=== PATIENT | female | born 1995 | race Caucasian/White ===

== ENCOUNTER 2023-12-06 15:53 | Emergency (ER) | payer SELFPAY ==
[2023-12-06 16:34] LABS: BASOPHILS ABSOLUTE AUTO 0.1 K/mm3 (0.0-0.2); BASOPHILS PERCENT AUTO 0.8 % (0.0-1.0); EOSINOPHILS ABSOLUTE AUTO 0.1 K/mm3 (0.0-0.4); EOSINOPHILS PERCENT AUTO 1.2 % (0.0-6.0); HEMATOCRIT 45.5 % (37.0-47.0); HEMOGLOBIN 15.3 gm/dl (12.0-16.0); IMMATURE GRAN ABSOLUTE AUTO 0.15 K/mm3 (0.00-0.05); IMMATURE GRAN PERCENT AUTO 1.6 % (0.0-0.4); LYMPHOCYTES ABSOLUTE AUTO 2.2 K/mm3 (1.0-4.8); LYMPHOCYTES PERCENT AUTO 24.3 % (24.0-44.0); MEAN CORPUSCULAR HEMOGLOBIN 28.8 pg (28.0-32.0); MEAN CORPUSCULAR HGB CONC 33.6 g/dl (32.0-36.0); MEAN CORPUSCULAR VOLUME 85.7 fl (83.0-99.0); MEAN PLATELET VOLUME 11.6 fl (9.4-12.3); MONOCYTES ABSOLUTE AUTO 0.9 K/mm3 (0.0-0.8); MONOCYTES PERCENT AUTO 10.2 % (0.0-8.0); NEUTROPHILS ABSOLUTE AUTO 5.6 K/mm3 (1.8-7.7); NEUTROPHILS PERCENT AUTO 61.9 % (41.0-71.0); PLATELET COUNT,PLT 294 K/mm3 (150-400); RED BLOOD CELL COUNT 5.31 M/mm3 (4.10-5.30); WHITE BLOOD CELL COUNT,WBC 9.11 K/mm3 (3.9-11.3)
[2023-12-06] MEDS: Ketorolac 60 MG/2 ML SDV IM ONE (16:41)
[2023-12-06 16:47] LABS: APPEARANCE,URINE CLEAR (Clear); BILIRUBIN,URINE NEGATIVE (Negative); COLOR,URINE YELLOW (Yellow); GLUCOSE,URINE NEGATIVE (Negative); KETONES,URINE NEGATIVE (Negative); LEUKOCYTE ESTERASE,URINE TRACE (Negative); NITRITE,URINE NEGATIVE (Negative); OCCULT BLOOD,URINE NEGATIVE (Negative); PROTEIN,URINE 1+ (Negative); UROBILINOGEN,URINE 0.2 (0.2-1.0)
[2023-12-06 16:55] LABS: A/G RATIO 0.9 (1-2); ALBUMIN 3.4 g/dl (3.4-5.0); ANION GAP 14.9 (5-15); BILIRUBIN TOTAL 0.3 mg/dL (0.2-1.0); BUN/CREATININE RATIO 11.4 (14-18); CALCIUM 10.2 mg/dL (8.5-10.1); CREATININE 0.7 mg/dL (0.55-1.02); EST CRCL DRUG DOSING (CG) 91.9 mL/min; POTASSIUM,K 3.9 mEq/L (3.5-5.1)
[2023-12-06 17:03] LABS: BACTERIA,URINE MODERATE /hpf (FEW); MUCUS,URINE MODERATE /hpf (FEW); RBC,URINE 0-5 /hpf (0-5); SQUAMOUS EPITHELIAL CELLS,UR 0-5 /hpf (0-5); WBC,URINE 0-5 /hpf (0-5)
== END 2023-12-06 17:56 | disposition home or self-care (01) ==
LOC: JD.ED 15:53
DX: K57.32 Diverticulitis of large intestine without perforation or abscess without bleeding (principal); N20.0 Calculus of kidney; F17.210 Nicotine dependence, cigarettes, uncomplicated; Z88.8 Allergy status to other drugs, medicaments and biological substances; Z91.018 Allergy to other foods; Z79.899 Other long term (current) drug therapy
CPT/HCPCS: 36415; 74176; 80053; 81001; 85025; 87086; 96372; 99284; J1885

== ENCOUNTER 2024-01-27 17:28 | Emergency (ER) | payer BC, MEDICAID ==
[2024-01-27] MEDS: Ketorolac 30 MG/ML SDV IM ONE (20:05)
[2024-01-27 20:23] LABS: APPEARANCE,URINE SLT CLOUDY (Clear); BILIRUBIN,URINE NEGATIVE (Negative); COLOR,URINE YELLOW (Yellow); GLUCOSE,URINE NEGATIVE (Negative); KETONES,URINE NEGATIVE (Negative); LEUKOCYTE ESTERASE,URINE NEGATIVE (Negative); NITRITE,URINE NEGATIVE (Negative); OCCULT BLOOD,URINE NEGATIVE (Negative); PROTEIN,URINE NEGATIVE (Negative); UROBILINOGEN,URINE 0.2 (0.2-1.0)
== END 2024-01-27 21:00 | disposition left against medical advice (07) ==
LOC: JD.ED 17:28
DX: R10.9 Unspecified abdominal pain (principal); Z88.1 Allergy status to other antibiotic agents; Z88.0 Allergy status to penicillin; Z91.018 Allergy to other foods; Z88.8 Allergy status to other drugs, medicaments and biological substances; Z79.899 Other long term (current) drug therapy
CPT/HCPCS: 81003; 96372; 99283; J1885

== ENCOUNTER 2024-01-28 17:13 | Emergency (ER) | payer MEDICAID ==
[2024-01-28 18:11] LABS: APPEARANCE,URINE CLEAR (Clear); BILIRUBIN,URINE NEGATIVE (Negative); COLOR,URINE YELLOW (Yellow); GLUCOSE,URINE NEGATIVE (Negative); KETONES,URINE NEGATIVE (Negative); LEUKOCYTE ESTERASE,URINE NEGATIVE (Negative); NITRITE,URINE NEGATIVE (Negative); OCCULT BLOOD,URINE NEGATIVE (Negative); PH,URINE 5.5 (5.0-8.0); PROTEIN,URINE NEGATIVE (Negative); UROBILINOGEN,URINE 0.2 (0.2-1.0)
[2024-01-28] MEDS: Ketorolac 60 MG/2 ML SDV IM ONE (18:51)
[2024-01-28] MEDS: Orphenadrine 60 MG/2 ML Inj IM ONE (18:52)
== END 2024-01-28 19:45 | disposition home or self-care (01) ==
LOC: JD.ED 17:13
DX: S39.012A Strain of muscle, fascia and tendon of lower back, initial encounter (principal); Z79.899 Other long term (current) drug therapy; Z88.0 Allergy status to penicillin; Z88.1 Allergy status to other antibiotic agents; Z91.018 Allergy to other foods
CPT/HCPCS: 81003; 81025; 96372; 99283; J1885; J2360

== ENCOUNTER 2024-06-19 21:24 | Emergency (ER) | payer MEDICAID ==
[2024-06-19] MEDS: Metoclopramide 10 MG/2 ML SDV IVPUSH ONE (21:55)
[2024-06-19] MEDS: HYDROmorphone 1 MG/ML Syringe IVPUSH ONE ×2 (21:56→22:51)
[2024-06-19] MEDS: Sodium Chloride 0.9% 1,000 ML IV SCH (21:56)
[2024-06-19] MEDS: diphenhydrAMINE 50 MG/ML SDV IVPUSH ONE (21:56)
[2024-06-19 21:57] LABS: BASOPHILS ABSOLUTE AUTO 0.1 K/mm3 (0.0-0.2); BASOPHILS PERCENT AUTO 0.5 % (0.0-1.0); EOSINOPHILS ABSOLUTE AUTO 0.2 K/mm3 (0.0-0.4); EOSINOPHILS PERCENT AUTO 1.4 % (0.0-6.0); HEMATOCRIT 42.5 % (37.0-47.0); HEMOGLOBIN 14.4 gm/dl (12.0-16.0); IMMATURE GRAN ABSOLUTE AUTO 0.14 K/mm3 (0.00-0.05); IMMATURE GRAN PERCENT AUTO 1.1 % (0.0-0.4); LYMPHOCYTES ABSOLUTE AUTO 3.3 K/mm3 (1.0-4.8); LYMPHOCYTES PERCENT AUTO 25.6 % (24.0-44.0); MEAN CORPUSCULAR HGB CONC 33.9 g/dl (32.0-36.0); MEAN CORPUSCULAR VOLUME 85.5 fl (83.0-99.0); MEAN PLATELET VOLUME 11.2 fl (9.4-12.3); MONOCYTES ABSOLUTE AUTO 1.1 K/mm3 (0.0-0.8); MONOCYTES PERCENT AUTO 8.8 % (0.0-8.0); NEUTROPHILS ABSOLUTE AUTO 8.1 K/mm3 (1.8-7.7); NEUTROPHILS PERCENT AUTO 62.6 % (41.0-71.0); PLATELET COUNT,PLT 272 K/mm3 (150-400); RED BLOOD CELL COUNT 4.97 M/mm3 (4.10-5.30); WHITE BLOOD CELL COUNT,WBC 12.94 K/mm3 (3.9-11.3)
[2024-06-19 21:59] LABS: BILIRUBIN,URINE NEGATIVE (Negative); COLOR,URINE YELLOW (Yellow); GLUCOSE,URINE NEGATIVE (Negative); KETONES,URINE NEGATIVE (Negative); LEUKOCYTE ESTERASE,URINE NEGATIVE (Negative); NITRITE,URINE NEGATIVE (Negative); OCCULT BLOOD,URINE 3+ (Negative); PH,URINE 6.5 (5.0-8.0); PROTEIN,URINE NEGATIVE (Negative); UROBILINOGEN,URINE 0.2 (0.2-1.0)
[2024-06-19 22:13] LABS: HEMOGLOBIN A1C 5.4 %
[2024-06-19 22:14] LABS: A/G RATIO 1.1 (1-2); ALBUMIN 3.3 g/dl (3.4-5.0); ANION GAP 13.1 (5-15); BILIRUBIN TOTAL 0.3 mg/dL (0.2-1.0); BUN/CREATININE RATIO 16.7 (14-18); C-REACTIVE PROTEIN 0.89 mg/dL (<0.30); CALCIUM 11.2 mg/dL (8.5-10.1); CREATININE 0.9 mg/dL (0.55-1.02); EST CRCL DRUG DOSING (CG) 71.48 mL/min; MAGNESIUM 1.9 mg/dL (1.8-2.4); POTASSIUM,K 3.1 mEq/L (3.5-5.1); PROTEIN TOTAL,TP 6.4 g/dl (6.4-8.2)
[2024-06-19 22:17] LABS: APPEARANCE,URINE SLT CLOUDY (Clear)
[2024-06-19 22:24] LABS: LACTIC ACID 2.2 mmol/L (0.4-2.0)
[2024-06-19 22:33] LABS: BACTERIA,URINE FEW /hpf (FEW); MUCUS,URINE FEW /hpf (FEW); WBC,URINE 0-5 /hpf (0-5)
[2024-06-19] MEDS: Iopamidol 612 MG/ML 100 ML Bottle IVPUSH ONE (22:47)
[2024-06-19] MEDS: Magnesium Citrate Solution 296 ML Bottle PO ONE (23:36)
== END 2024-06-19 23:32 | disposition home or self-care (01) ==
LOC: JD.ED 21:24
DX: R10.13 Epigastric pain (principal); K59.01 Slow transit constipation; T50.905A Adverse effect of unspecified drugs, medicaments and biological substances, initial encounter; Z79.899 Other long term (current) drug therapy; Z88.0 Allergy status to penicillin; Z88.1 Allergy status to other antibiotic agents; Z91.018 Allergy to other foods
CPT/HCPCS: 36415; 74177; 80053; 81001; 83036; 83605; 83690; 83735; 85025; 86140; 96361; 96374; 96375; 96376; 99285; A9270; J1171; J1200; J2765; J7030; Q9967; 99284

== ENCOUNTER 2024-06-27 22:04 | Emergency (ER) | payer MEDICAID ==
[2024-06-27] MEDS: hydrOXYzine HCl 25 MG Tab PO ONE (23:18)
== END 2024-06-27 23:23 | disposition home or self-care (01) ==
LOC: JD.ED 22:04
DX: F41.9 Anxiety disorder, unspecified (principal); R11.2 Nausea with vomiting, unspecified; R68.83 Chills (without fever); E66.9 Obesity, unspecified; Z68.42 Body mass index [BMI] 45.0-49.9, adult; Z79.899 Other long term (current) drug therapy; Z88.0 Allergy status to penicillin; Z91.018 Allergy to other foods
CPT/HCPCS: 99283; A9270

== ENCOUNTER 2024-08-10 14:38 | Emergency (ER) | payer MEDICAID ==
[2024-08-10] MEDS: Cyclobenzaprine 10 MG Tab PO ONE (16:02)
== END 2024-08-10 16:59 | disposition home or self-care (01) ==
LOC: JD.ED 14:38
DX: M54.41 Lumbago with sciatica, right side (principal); E66.9 Obesity, unspecified; Z88.0 Allergy status to penicillin; Z91.040 Latex allergy status; Z91.018 Allergy to other foods; Z88.8 Allergy status to other drugs, medicaments and biological substances
CPT/HCPCS: 99283; A9270

== ENCOUNTER 2024-10-30 20:44 | Emergency (ER) | payer MEDICAID ==
[2024-10-30] MEDS: Cyclobenzaprine 10 MG Tab PO ONE (21:42)
[2024-10-30] MEDS: Ketorolac 60 MG/2 ML SDV IM ONE (21:42)
[2024-10-30] MEDS: HYDROmorphone 1 MG/ML Syringe IM ONE (21:43)
== END 2024-10-30 21:51 | disposition home or self-care (01) ==
LOC: JD.ED 20:44
DX: M54.50 Low back pain, unspecified (principal); E66.9 Obesity, unspecified; Z68.43 Body mass index [BMI] 50.0-59.9, adult; Z86.16 Personal history of COVID-19; Z88.0 Allergy status to penicillin; Z88.1 Allergy status to other antibiotic agents; Z91.041 Radiographic dye allergy status; Z91.018 Allergy to other foods; Z79.899 Other long term (current) drug therapy
CPT/HCPCS: 96372; 99283; A9270; J1171; J1885

== ENCOUNTER 2024-11-23 14:04 | Emergency (ER) | payer MEDICAID ==
[2024-11-23 15:15] LABS: BASOPHILS ABSOLUTE AUTO 0.1 K/mm3 (0.0-0.2); BASOPHILS PERCENT AUTO 0.6 % (0.0-1.0); EOSINOPHILS ABSOLUTE AUTO 0.2 K/mm3 (0.0-0.4); EOSINOPHILS PERCENT AUTO 1.6 % (0.0-6.0); HEMATOCRIT 45.1 % (37.0-47.0); HEMOGLOBIN 14.7 gm/dl (12.0-16.0); IMMATURE GRAN ABSOLUTE AUTO 0.15 K/mm3 (0.00-0.05); IMMATURE GRAN PERCENT AUTO 1.6 % (0.0-0.4); LYMPHOCYTES ABSOLUTE AUTO 2.1 K/mm3 (1.0-4.8); LYMPHOCYTES PERCENT AUTO 22.2 % (24.0-44.0); MEAN CORPUSCULAR HEMOGLOBIN 28.4 pg (28.0-32.0); MEAN CORPUSCULAR HGB CONC 32.6 g/dl (32.0-36.0); MEAN CORPUSCULAR VOLUME 87.2 fl (83.0-99.0); MEAN PLATELET VOLUME 11.5 fl (9.4-12.3); MONOCYTES ABSOLUTE AUTO 0.9 K/mm3 (0.0-0.8); MONOCYTES PERCENT AUTO 9.6 % (0.0-8.0); NEUTROPHILS ABSOLUTE AUTO 6.1 K/mm3 (1.8-7.7); NEUTROPHILS PERCENT AUTO 64.4 % (41.0-71.0); PLATELET COUNT,PLT 279 K/mm3 (150-400); RED BLOOD CELL COUNT 5.17 M/mm3 (4.10-5.30); WHITE BLOOD CELL COUNT,WBC 9.48 K/mm3 (3.9-11.3)
[2024-11-23] MEDS: Ondansetron 4 MG/2 ML SDV IVPUSH ONE (15:16)
[2024-11-23] MEDS: Sodium Chloride 0.9% 1,000 ML IV STA (15:16)
[2024-11-23] MEDS: HYDROmorphone 0.5 MG/0.5 ML Syringe IVPUSH ONE (15:16)
[2024-11-23] MEDS: Sodium Chloride 0.9% 10 ML Syringe FLUSH ONE (15:21)
[2024-11-23 15:38] LABS: A/G RATIO 0.9 (1-2); ANION GAP 11.1 (5-15); BILIRUBIN TOTAL 0.2 mg/dL (0.2-1.0); BUN/CREATININE RATIO 14.3 (14-18); CALCIUM 10.1 mg/dL (8.5-10.1); CREATININE 0.7 mg/dL (0.55-1.02); EST CRCL DRUG DOSING (CG) 91.09 mL/min; POTASSIUM,K 4.1 mEq/L (3.5-5.1); PROTEIN TOTAL,TP 6.2 g/dl (6.4-8.2)
[2024-11-23] MEDS: Sodium Chloride 0.9% 10 ML Syringe FLUSH PRN (16:15)
[2024-11-23] MEDS: Iopamidol 612 MG/ML 100 ML Bottle IVPUSH ONE (16:15)
[2024-11-23 16:16] LABS: APPEARANCE,URINE CLEAR (Clear); BILIRUBIN,URINE NEGATIVE (Negative); COLOR,URINE YELLOW (Yellow); GLUCOSE,URINE NEGATIVE (Negative); KETONES,URINE NEGATIVE (Negative); LEUKOCYTE ESTERASE,URINE NEGATIVE (Negative); NITRITE,URINE NEGATIVE (Negative); OCCULT BLOOD,URINE NEGATIVE (Negative); PH,URINE 7.5 (5.0-8.0); PROTEIN,URINE NEGATIVE (Negative); UROBILINOGEN,URINE 0.2 (0.2-1.0)
[2024-11-23 16:38] LABS: BACTERIA,URINE FEW /hpf (FEW); MUCUS,URINE NOT SEEN /hpf (FEW); RBC,URINE 0-5 /hpf (0-5); WBC,URINE 0-5 /hpf (0-5)
== END 2024-11-23 16:46 | disposition home or self-care (01) ==
LOC: JD.ED 14:04
DX: R10.30 Lower abdominal pain, unspecified (principal); K21.9 Gastro-esophageal reflux disease without esophagitis; E66.9 Obesity, unspecified; Z86.16 Personal history of COVID-19; Z79.899 Other long term (current) drug therapy; Z79.84 Long term (current) use of oral hypoglycemic drugs; Z91.018 Allergy to other foods; Z88.0 Allergy status to penicillin; Z91.040 Latex allergy status; Z88.1 Allergy status to other antibiotic agents; Z88.8 Allergy status to other drugs, medicaments and biological substances; Z68.43 Body mass index [BMI] 50.0-59.9, adult
CPT/HCPCS: 36415; 74177; 80053; 81001; 84703; 85025; 96361; 96374; 96375; 99284; J2405; J7030; Q9967

== ENCOUNTER 2025-01-15 22:06 | Emergency (ER) | payer MEDICAID ==
[2025-01-15] MEDS: Cyclobenzaprine 10 MG Tab PO ONE (23:25)
[2025-01-15] MEDS: Morphine 4 MG/ML Syringe IM ONE (23:26)
== END 2025-01-16 00:01 | disposition home or self-care (01) ==
LOC: JD.ED 22:06
DX: M54.50 Low back pain, unspecified (principal); E66.9 Obesity, unspecified; Z88.0 Allergy status to penicillin; Z91.018 Allergy to other foods; Z91.040 Latex allergy status; Z79.899 Other long term (current) drug therapy; Z86.16 Personal history of COVID-19; Z68.43 Body mass index [BMI] 50.0-59.9, adult
CPT/HCPCS: 96372; 99283; A9270; J2270

== ENCOUNTER 2025-06-07 14:31 | Emergency (ER) | payer MEDICAID ==
[2025-06-07] MEDS: Ketorolac 30 MG/ML SDV IM ONE (16:05)
== END 2025-06-07 16:09 | disposition home or self-care (01) ==
LOC: JD.ED 14:31
DX: S39.012A Strain of muscle, fascia and tendon of lower back, initial encounter (principal); Z88.0 Allergy status to penicillin; Z91.030 Bee allergy status; Z91.040 Latex allergy status; Z91.018 Allergy to other foods; Z79.84 Long term (current) use of oral hypoglycemic drugs; Z79.899 Other long term (current) drug therapy; Z86.16 Personal history of COVID-19; X58.XXXA Exposure to other specified factors, initial encounter
CPT/HCPCS: 96372; 99283; A9270-GY; J1885

== ENCOUNTER 2025-06-15 15:06 | Emergency (ER) | payer MEDICAID ==
[2025-06-15] MEDS: Ketorolac 60 MG/2 ML SDV IM ONE (16:13)
== END 2025-06-15 17:45 ==
LOC: JD.ED 15:06
DX: M54.50 Low back pain, unspecified (principal); G89.29 Other chronic pain; E66.9 Obesity, unspecified; Z88.0 Allergy status to penicillin; Z68.43 Body mass index [BMI] 50.0-59.9, adult; Z91.030 Bee allergy status; Z91.040 Latex allergy status; Z91.018 Allergy to other foods; Z88.8 Allergy status to other drugs, medicaments and biological substances; Z79.84 Long term (current) use of oral hypoglycemic drugs; Z79.899 Other long term (current) drug therapy; W01.198A Fall on same level from slipping, tripping and stumbling with subsequent striking against other object, initial encounter
CPT/HCPCS: 72100; 96372; 99283; J1171; J1885

== ENCOUNTER 2025-07-05 20:08 | Emergency (ER) | payer MEDICAID, OTHER | END 2025-07-05 22:15 | disposition home or self-care (01) | LOC: JD.ED 20:08 | DX: M25.562 Pain in left knee (principal); K21.9 Gastro-esophageal reflux disease without esophagitis; E66.9 Obesity, unspecified; Z79.899 Other long term (current) drug therapy; Z79.84 Long term (current) use of oral hypoglycemic drugs; Z88.0 Allergy status to penicillin; Z88.8 Allergy status to other drugs, medicaments and biological substances; Z91.030 Bee allergy status; Z68.43 Body mass index [BMI] 50.0-59.9, adult; Z91.040 Latex allergy status; W01.0XXA Fall on same level from slipping, tripping and stumbling without subsequent striking against object, initial encounter | CPT/HCPCS: 73590; 96372; 99283; J1171; 99282 ==